=== PATIENT | female | born 1960 | race Caucasian/White ===

== ENCOUNTER 2018-01-14 13:58 | Inpatient (IN) ==
[2018-01-14] MEDS ORDERED: CeFAZolin Syr 2,000MG/20 ML 2,000 MG/20 ML SYRINGE IVPB ONE (14:18)
[2018-01-14] MEDS ORDERED: Ringers Solution, Lactated 1,000 ML IVC SCH (14:30)
--- NOTE | 2018-01-14 15:33 | History & Physical Report ---
Date of Encounter: 01/14/18 Time of Encounter: 16:19 24 Hour HP Update - Instructions Instructions: If the History and Physical is less than 30 days old and was completed prior to A.M. admission and or procedure and has NOT been updated on calendar day of procedure please complete this update prior to performing procedure. - Update Patient reports changes in Medical Condition: No Changes in examination, assessment, or condition: No Changes in Medication: No Preop tests/diagnostics Reviewed: Yes Pre-Op MRSA Screen: Positive, Vancomycin for Prophylaxis Surgery Remains Indicated: Yes Consent for Planned Operative Procedure(s) Verified: Yes
--- NOTE | 2018-01-14 15:33 | Discharge Summary ---
Outpatient Proc Discharge Plan - Plan Additional Instructions: There a few things to keep in mind in the next few days. If you notice redness at the site, drainage from the site, swelling at the battery site, feeling ill, fever, or chills, call our office. These are signs of infection. Infections are rare and can be treated, but delaying the diagnosis of infection is dangerous. It is normal to have soreness at the surgery site. This will go away in a few days. Do not submerge the incisions in water before they are totally healed. Keep the bandage dry. Do not remove the bandage. Our office will take care of it. We will remove the bandages in 2 weeks in the office. You are never very far from someone who can help if you have questions. Call our office with any questions or problems during the week. Go the emergency department if you are experiencing problems on a weekend or holiday. Have a good day, continue to be active. Home Medications: Acetaminophen [Tylenol] 650 mg PO Q4H PRN 05/19/16 [History] Aspirin 81 mg PO DAILY 05/19/16 [History] Bisacodyl [Dulcolax] 10 mg RC QPM 05/19/16 [History] BuPROPion XL (24 HR) [Wellbutrin XL] 150 mg PO DAILY 05/19/16 [History] Canagliflozin [Invokana] 300 mg PO DAILY 05/19/16 [History] Escitalopram [Lexapro] 10 mg PO DAILY 05/19/16 [History] Hydrocortisone [Proctozone-Hc] 1 appl RC BID PRN 05/19/16 [History] Insulin ASPART [NovoLOG] 24 unit SQ TIDWM 05/19/16 [History] Insulin DETEMIR [Levemir] 100 unit SQ QAM 05/19/16 [History] Insulin DETEMIR [Levemir] 110 unit SQ HS 05/19/16 [History] L. Acidophilus/Pectin, [place] [Acidophilus Capsule] 1 each PO DAILY 05/19/16 [ History] Lactulose [Enulose] 10 gm PO BID PRN 05/19/16 [History] LevETIRAcetam [Keppra] 500 mg PO Q12H 05/19/16 [History] Loperamide [Imodium] 2 mg PO DAILY PRN MDD 8 capsules 05/19/16 [History] MOM Conc [Milk of Magnesia Conc] 30 ml PO BID PRN 05/19/16 [History] Multivitamin,Stress Formula/Zn [Stress B with Zinc Tablet] 1 each PO DAILY 05/19 [History] Ranitidine HCl [Zantac] 300 mg PO DAILY 05/19/16 [History] Saline Nasal [place] [[place] Nasal [place]] 1 spr NS Q6H 05/19/16 [History] Sennosides/Docusate Sodium [Senna-S Tablet] 1 each PO BID 05/19/16 [History] Atorvastatin [Lipitor] 20 mg PO HS 01/14/18 [History]
--- NOTE | 2018-01-14 15:34 | Pain Management Procedure Note ---
Date of procedure: 01/14/18 Procedure: PHYSICIAN: DR. LARRY PREOPERATIVE DIAGNOSIS: History of hemorrhagic stroke associated with chronic spasticity POSTOPERATIVE DIAGNOSIS: Same OPERATIVE PROCEDURE: Surgical revision of intrathecal pump (replacement of pump and catheter) COMPLICATIONS: None ANESTHESIA: Local and monitored anesthesia care. SAFETY INFORMATION: Upon entering the procedure suite, we verified the following information with the patient: 1. The patient denies allergies to latex, iodine, steroids, and IV contrast. 2. The patient denies taking oral anticoagulants other than aspirin. 3. The patient denies recently being given injectable anticoagulants. 4. The patient denies recent hospital, Emergency Department, or inpatient rehabilitation admission. 5. The patient denies use of herbal medications, in particular garlic and ginkgo. 6. The patient denies solid food or non clear liquid intake for at least 8 hours and clear liquids for 2 hours. PROCEDURE: The patient presented to me yesterday with skin breakdown over the catheter access port site of her intrathecal infusion system. The patient lives in a long-term care facility, is generally debilitated, is chronically infected with urinary tract infections and pathogens, and is MRSA positive. In this setting, the patient is high risk for infected spinal hardware. Because we are infusing baclofen through her programmable intrathecal pump, I decided to bring the patient to the operating room in order to revise her pump site. Her skin started to breakdown because of a massive increase in intra-abdominal fat and recent new body positions due to recently getting access to a special chair which allows her to sit up. The pressure caused by intra-abdominal fat and her new sitting position seem to be the reason why her skin broke down. I think it is important that we get ahead of an infection that could cause her to be septic and threatened the integrity of her intrathecal infusion system which is also a life-threatening problem. The patient was correctly identified. All questions were answered and informed , written consent was verified. An intravenous catheter was placed prior to the procedure. Vancomycin was administered 60 minutes prior to the procedure via slow IV infusion. The IV line was subsequently used to deliver appropriate doses of anesthetic to keep the patient comfortable at certain times during this procedure. Strict sterile technique was followed throughout the procedure including surgical scrubbing and full body draping. The patient was brought to the fluoroscopy suite and placed in the supine position on the OR table. Care was taken to pad all pressure points. The patient's right lower quadrant where the pump rested under her skin was prepped in the typical sterile fashion. The patient's full body was draped in the usual sterile fashion. A surgical window of sterilized skin from iliac crest to rib cage was created. Sticky plastic film impregnated with iodine was then placed over the surgical skin which allowed us to visualize the prior marker lines. First, I outlined the original pump with a skin marker. I also traced the original incision line across the superior border of the original pump. I used a 1-1/2 inch 25-gauge needle to place 17 mLs of 0.25% bupivacaine with epinephrine along this incision line. I used a 15 blade scalpel to open the skin along the previously drawn and anesthetized line across the pump. Electrocautery and blunt dissection were used to dissect down to the original hardware. Small areas of oozing blood controlled with electrocautery. I was able to mobilize the original pump out of the wound and remove it from the surgical field after disconnecting the catheter from the pump. At this point, I turned my attention to revision of the pocket site. I used blunt dissection to extend the plane of the pocket laterally into and beyond the anterior axillary line. I also mobilized the catheter from scar tissue so that the catheter could rest behind the pump. The new pump pocket site was superficial to muscular fascia which was clearly visualized. Small bleeding vessels were coagulated with electrocautery. The wound was copiously irrigated with 2 L of saline. The first liter was normal saline. The second liter containing 1 g of vancomycin. We decided to implant a new 20 mL pump rather than a 40 mL pump because of the preponderance of intra-abdominal fat causing a protuberant abdomen. A 40 mL pump simply no longer fits this patient. The new pump was connected to the catheter system and the catheter was aspirated via the catheter access port. Clear CSF was easily withdrawn. I was able to withdraw 0.5 mls of CSF from the catheter access port. The new 20 mL pump was then placed into the new pocket which was more lateral to the original site. I used 0-0 silk suture to anchor the pump within the pocket to prevent the patient from being able to twist the pump. I also took great care to place the catheter beneath the new pump so that the catheter could not inadvertently entered the space between the reservoir access port and the skin surface. I also placed hetastarch in the wound to cause a generalized inflammatory reaction so that the pump would scar into place and the catheter with scar in beneath the pump. Prior to approximating the wound edges, I made sure that the catheter was beneath the pump. Finally, I sprinkled 500 mg of vancomycin powder into the wound. The incision was now closed. I used 0-0 barbed absorbable self locking suture to approximate the subcutaneous layer using a running stitch. The dermis was closed with a 2-0 barbed absorbable self locking suture using a running stitch. The skin edges were well approximated. I then placed a Zipline device to approximate the skin edges of both incisions. The final dressing was a Tegaderm with sterile gauze. The sponge and instrument counts were correct. The patient tolerated the entire procedure well. The sterile field was taken down, and the patient was moved to the recovery room. The patient was then taken from recovery to the hospital floor. I consult of the medicine service to assist me with her medical management. I discussed her overall medical state, recurrent urinary tract infections, and risk for spinal infusion system infection. They saw on the intraoperative findings of no major abscess or ongoing infection, I think it is reasonable to stop intravenous antibiotics now. We anticipate the patient to return to her long-term care facility in 24-48 hours. Was there an social service assistant present: No Estimated blood loss (cc): 10 Specimen: 0
--- NOTE | 2018-01-14 16:17 | Anesthesia Evaluation PreOp ---
Date of Encounter: 01/14/18 Time of Encounter: 16:15 - Past History Planned Operation: Revision Intrathecal Pump Cardiac History: HTN, Hyperlipidemia Pulmonary History: Former smoker (quit in 2008, smoked for 30 years), COPD DIRECTOR COMPLIANCE History: CVA ((in 2008, hemiplegia right side) Other Medical History: Diabetes Type II, GERD, Other (anxiety) Anesthesia History: No Prior Anesthetic Complications, Past Anesthesia (brain aneurysm coiling) Alcohol Use: none Drug use: none Medications and Allergies Acetaminophen [Tylenol] 650 mg PO Q4H PRN 05/19/16 [History] Aspirin 81 mg PO DAILY 05/19/16 [History] Bisacodyl [Dulcolax] 10 mg RC QPM 05/19/16 [History] BuPROPion XL (24 HR) [Wellbutrin XL] 150 mg PO DAILY 05/19/16 [History] Canagliflozin [Invokana] 300 mg PO DAILY 05/19/16 [History] Escitalopram [Lexapro] 10 mg PO DAILY 05/19/16 [History] Hydrocortisone [Proctozone-Hc] 1 appl RC BID PRN 05/19/16 [History] Insulin ASPART [NovoLOG] 24 unit SQ TIDWM 05/19/16 [History] Insulin DETEMIR [Levemir] 100 unit SQ QAM 05/19/16 [History] Insulin DETEMIR [Levemir] 110 unit SQ HS 05/19/16 [History] L. Acidophilus/Pectin, [place] [Acidophilus Capsule] 1 each PO DAILY 05/19/16 [ History] Lactulose [Enulose] 10 gm PO BID PRN 05/19/16 [History] LevETIRAcetam [Keppra] 500 mg PO Q12H 05/19/16 [History] Loperamide [Imodium] 2 mg PO DAILY PRN MDD 8 capsules 05/19/16 [History] MOM Conc [Milk of Magnesia Conc] 30 ml PO BID PRN 05/19/16 [History] Multivitamin,Stress Formula/Zn [Stress B with Zinc Tablet] 1 each PO DAILY 05/19 [History] Ranitidine HCl [Zantac] 300 mg PO DAILY 05/19/16 [History] Saline Nasal [place] [[place] Nasal [place]] 1 spr NS Q6H 05/19/16 [History] Sennosides/Docusate Sodium [Senna-S Tablet] 1 each PO BID 05/19/16 [History] Atorvastatin [Lipitor] 20 mg PO HS 01/14/18 [History] 3 Allergy/AdvReac Type Severity Reaction Status Date / Time No Known Allergies Allergy Verified 05/19/16 14:00 - Meds/Allergy Pre-op Review Medications Reviewed: Yes Allergies Reviewed: Yes Beta Blockers on Current Med List: No Anesthesia Results - Labs Laboratory Tests 05/15/16 05/15/16 05/15/16 12:45 12:45 12:45 WBC 9.6 Hgb 14.4 Hct 47.4 H Plt Count 301 PT 11.4 INR 1.1 APTT 28.1 Sodium 143 Potassium 3.9 BUN 15 Creatinine 0.59 - Imaging EKG: report reviewed (01/28/2016 SB) Anesthesia Exam O2 Sat Height 1.55 m Weight 83.915 kg O2 Sat by Pulse Oximetry 93 Vital Signs Temp Pulse Resp BP Pulse Ox 97.7 F 73 16 131/80 93 01/14/18 14:11 01/14/18 14:11 01/14/18 14:11 01/14/18 14:11 01/14/18 14:11 Height: 5'1'' Weight: 185 lbs NPO (# of Hours): 8 Pain Scale: 0 Pain Scale Used: Numeric (1 - 10) - HEENT Mallampati: III Teeth: Normal, Missing Oral Opening: Less than or equal to 3 - DIRECTOR COMPLIANCE LOC: Uncooperative DIRECTOR COMPLIANCE Motor: Normal LUE, Normal LLE, Normal Face, Deficit RUE, Deficit RLE DIRECTOR COMPLIANCE Sensory: Normal: RUE, LUE, RLE, LLE, Face - Cardiac Rhythm: Regular Murmur: None - Pulmonary Breath Sounds: bilateral Clear (distant BS) Respiratory Effort: Symmetrical Anesthesia Assess/Plan ASA Score: 3 (Consent obtained from patient's father.) Modified Karol Scale for Level of Consciousness: Anixous, agitated or restless Anesthetic Plan: General Monitoring Plan: Standard Monitors Recovery Plan: PACU
[2018-01-14] MEDS ORDERED: *HR* Propofol 200 MG/20 ML VIAL IVP ONE (16:25)
[2018-01-14] MEDS ORDERED: Lidocaine -MPF 4% 5 ML AMPUL ONE (16:25)
[2018-01-14] MEDS ORDERED: *HR* Rocuronium Bromide 50 MG/5 ML VIAL ONE (16:25)
[2018-01-14] MEDS ORDERED: *HR* FentaNYL (PF) 100 MCG/2 ML VIAL ONE (16:25)
[2018-01-14] MEDS ORDERED: KETAMINE HCL 50 MG/ML SYRINGE IV ONE (16:28)
[2018-01-14] MEDS ORDERED: Acetaminophen IV 1,000 MG/100 ML INFUS..BTL ONE (16:28)
[2018-01-14] MEDS ORDERED: SUGAMMADEX SODIUM 500 MG/5 ML VIAL IV ONE (16:28)
[2018-01-14] MEDS ORDERED: Lidocaine/EPI 1:100k 2% 20 ML VIAL ONE (16:30)
[2018-01-14] MEDS ORDERED: Bupivacaine/EPI 1:200k 0.25%PF 10 ML VIAL INFILT ONE (16:30)
[2018-01-14] MEDS ORDERED: Vancomycin 1,000 MG VIAL ONE (16:34)
[2018-01-14] MEDS ORDERED: Gentamicin 80 MG/2 ML VIAL ONE (17:26)
[2018-01-14 17:30] LABS: Basophils % 0.3 %; Eosinophils # 0.2 K/mcL (0.0-0.6); Eosinophils % 1.6 %; Immature Granulocytes % 0.3 % (0-4); Lymphocytes # 2.5 K/mcL (0.6-4.6); Mean Corpuscular HGB Conc 31.3 g/dL (31.6-35.5); Mean Corpuscular Volume 92.7 fL (83.0-100.0); Mean Platelet Volume 9.9 fL (9.4-12.4); Monocytes # 0.6 K/mcL (0.0-1.3); Monocytes % 5.1 %; Neutrophils # 8.5 K/mcL (1.6-8.9); Platelet Count 284 K/mcL (140-400); Red Blood Count 5.18 M/mcL (3.82-4.97); Red Cell Distribution Width 18.4 % (11.5-14.5); Segmented Neutrophils % 71.7 %
[2018-01-14] MEDS ORDERED: Ondansetron 4 MG/2 ML VIAL ONE (17:43)
[2018-01-14] MEDS ORDERED: Dexamethasone 4 MG/ML VIAL ONE (17:43)
[2018-01-14] MEDS ORDERED: EPHEDrine 50 MG/ML VIAL ONE (18:03)
[2018-01-14] MEDS ORDERED: *HR* Promethazine 25 MG/ML VIAL IVP PRN (18:09)
[2018-01-14] MEDS ORDERED: *HR* HYDROmorphone (PF) 1 MG/ML SYRINGE IVP PRN (18:09)
[2018-01-14] MEDS ORDERED: Ondansetron 4 MG/2 ML VIAL IVP ONE (18:09)
[2018-01-14] MEDS ORDERED: *HR* OxyCODONE Immed Rel 5 MG TABLET PO PRN (18:09)
[2018-01-14] MEDS ORDERED: *HR* Labetalol 20 MG/4 ML SYRINGE IVP PRN (19:04)
[2018-01-14] MEDS ORDERED: *HR* Labetalol 20 MG/4 ML SYRINGE IVP ONE (19:05)
[2018-01-14] MEDS ORDERED: *HR* OxyCODONE/APAP 5/325 TABLET PO PRN (19:18)
[2018-01-14] MEDS ORDERED: Ondansetron 4 MG/2 ML VIAL IVP PRN (19:18)
[2018-01-14] MEDS ORDERED: Albuterol 2.5 MG/3 ML NEBULIZER ONE (19:19)
[2018-01-14] MEDS ORDERED: Albuterol 2.5 MG/3 ML NEBULIZER IH ONE (19:20)
[2018-01-14] MEDS ORDERED: Lactulose Oral Soln 20 GM/30 ML UDC PO PRN (19:20)
[2018-01-14] MEDS ORDERED: Hydrocortisone Rectal 2.5% CRM 28 GM TUBE RC PRN (19:20)
[2018-01-14] MEDS ORDERED: MOM Conc 10 ML UD.LIQ PO PRN (19:20)
--- NOTE | 2018-01-14 19:52 | Anesthesia Evaluation Post Op ---
Date of Encounter: 01/14/18 Time of Encounter: 19:51 - Vital Signs Vital Signs: Vital Signs/O2 Sat, Most Current Temp Pulse Resp BP Pulse Ox 98.8 F 88 16 149/79 97 01/14/18 19:41 01/14/18 19:41 01/14/18 19:41 01/14/18 19:41 01/14/18 19:41 - Lungs Lungs: Clear Ascult./Percussion - Airway Airway: Non-obstructed - Cardiovascular Regular Rate - Mental Status Mental Status: Alert & Oriented, Answers Appropriately - Pain Pain Scale: 0 Pain Scale used: Numeric (1 - 10) - Nausea Vomiting Nausea Vomiting: Not Present - Hydration Hydration: NPO, Has not voided - Discharge PostOp Status: Transfer Patient to floor
[2018-01-14] MEDS ORDERED: *HR* Dextrose 50 % in Water (Syg) 50 ML SYRINGE IVP PRN (21:00)
[2018-01-14] MEDS ORDERED: Insulin DETEMIR 100 UNIT/ML X5UNITS SQ SCH (21:00)
[2018-01-14] MEDS ORDERED: Dextrose Gel 15 GM/37.5 ML TUBE PO PRN ×2 (21:00)
[2018-01-14] MEDS ORDERED: D5% in Water 1,000 ML IVC PRN (21:00)
[2018-01-14] MEDS ORDERED: Naloxone 0.4 MG/ML INJ IVP PRN (21:01)
--- NOTE | 2018-01-14 21:10 | Internal Medicine Consult Note ---
<Donald Ambriz - Last Filed: 01/14/18 22:11> Date of Encounter: 01/14/18 Time of Encounter: 20:30 - Assessment and plan (1) Pain Current Visit: Yes Status: Acute Assessment and plan: Monitor for acute pain following surgical revision of intrathecal pump today. Pt. denies pain on exam. Tegaderm w/sterile gauze placed after insertion of pump. Tylenol 500 mg ordered for mild pain, oxycodone 5/325 PO Q4HR PRN for moderate pain, and hydromorphone 0.5 mg IVP Q5MIN PRN for severe pain ordered. Monitor pts. BP following opiate pain medication administration to assess for hypotension. Dressing applied following surgical intervention w/plan to provide dressing care and removal of bandages in 2 weeks in office as OP. Pt. discussed w/Dr. Franz who agrees w/plan of care. Pt. is high risk for further morbidity and complications d/t hx of previous MRSA, current surgical revision of intrathecal pump and catheter, hx of chronic UTIs, hx of hemorrhagic stroke, and risk factors. Inpatient. (2) HTN (hypertension) Current Visit: Yes Status: Acute Assessment and plan: Acute HTN r/t post-surgical status. Labetalol 5 mg IVP Q5MIN PRN x2 doses ordered. Will monitor pt. closely for HTN. Qualifiers: Hypertension type: other secondary hypertension Qualified Code(s): I15.8 - Other secondary hypertension (3) Diabetes Current Visit: Yes Status: Chronic Assessment and plan: Hx of chronic diabetes controlled w/oral medication and insulin. Invokana continued w/pts. home insulin dosing. BG checks and correction sliding scale insulin ordered Q6 d/t current NPO status until bedside swallow evaluation passed. A1c in a.m. labs. Qualifiers: Diabetes mellitus type: type 2 Diabetes mellitus prison insulin use: unspecified prison insulin use status Diabetes mellitus complication status : with unspecified complications Qualified Code(s): E11.8 - Type 2 diabetes mellitus with unspecified complications (4) HLD (hyperlipidemia) Current Visit: Yes Status: Chronic Assessment and plan: Hx of chronic HLD. Lipid panel in a.m. labs. Continue pts. Lipitor. Qualifiers: Hyperlipidemia type: pure hypercholesterolemia Qualified Code(s): E78.00 - Pure hypercholesterolemia, unspecified; E78.0 - Pure hypercholesterolemia (5) GERD (gastroesophageal reflux disease) Current Visit: Yes Status: Chronic Assessment and plan: Hx of chronic GERD. Continue pts. PO Zantac. IVP Phenergan 6.25 mg Q5MIN x2 doses ordered for N/V post-anesthesia. IVP Zofran 4 mg Q6HR PRN ordered as well. Qualifiers: Esophagitis presence: esophagitis presence not specified Qualified Code(s) : K21.9 - Gastro-esophageal reflux disease without esophagitis (6) Seizures Current Visit: Yes Status: Chronic Assessment and plan: Hx of chronic seizures. Continue pts. Keppra. (7) Depression Current Visit: Yes Status: Chronic Assessment and plan: Hx of chronic depression. Continue pts. Wellbutrin and Lexapro. Qualifiers: Depression Type: unspecified Qualified Code(s): F32.9 - Major depressive disorder, single episode, unspecified (8) DVT prophylaxis Current Visit: Yes Status: Acute Assessment and plan: SCDs ordered for DVT prophylaxis. (9) Nausea after anesthesia Current Visit: Yes Status: Acute Assessment and plan: IVP Phenergan x2 doses ordered. IVP Zofran 4 mg Q6HR PRN ordered. Monitor I&O. Qualifiers: Encounter type: initial encounter Qualified Code(s): T88.59XA - Other complications of anesthesia, initial encounter; R11.0 - Nausea - Time Spent With Patient Total time spent is greater than 50% in coordination of care (as documented) at patient's floor/unit and/or counseling patient: Greater than 35 minutes Internal Medicine - CN: HPI - Data of Consult Patient: new to practice Requesting Physician: Juliocesar Parra DO - Consult Narrative Reason for consult: Medical mgmt History of present illness: Ms. Cramer is a 57 year old female w/PMH of diabetes controlled with insulin , aortic aneurysm, HLD, seizures, GERD, hx of hemorrhagic stroke, history of chronic UTIs, and depression presents post placement of intrathecal pump today for medical management. According to postoperative notes, patient had 20 mL pump inserted which replaced previous 40 mL pump. Pt. is a resident of [facility], generally debilitated, was found to be MRSA positive in the past, and has hx of chronic UTIs. Pt. is in and out of awareness d/t anesthesia but states that she is not in any pain at the time of exam. Plan from surgery is to manage pt. w/ return to [facility] in 24-48 hours. Past Med Surg Social Fam HX - Past Medical History Source: patient, old records reviewed Medical history: aortic aneurysm, CVA, diabetes, GERD, hyperlipidemia, seizures Additional medical history: Brain aneurysm, Chronic UTIs. Psychiatric history: depression - Past Surgical History Surgical History: other Additional surgical history: PAIN PUMP - Social History Smoking Status: Never smoker Smokeless Tobacco Status: No Alcohol use: none Drug use: none Current living situation: [facility] Recent Out of Country Travel Within the Last 8 Weeks: No Exposure or Possible Exposure to Illness During Travel: No - Family History Father Race: Family Member Ethnicity: Non- Living Status: Age at : 50 Cause of : MD Hx Family Cardiac Disorders: Yes (MD, CAD) Mother Race: Family Member Ethnicity: Non- Living Status: Age at : 53 Cause of : Brain cancer Hx Family Cancer: Yes (Brain) - Constitutional Constitutional: as per HPI - EENT Eyes: as per HPI Ears: as per HPI Nose, mouth and throat: as per HPI - Breasts Breasts: as per HPI - Cardiovascular Cardiovascular ROS IM: as per HPI - Respiratory Respiratory: as per HPI - Gastrointestinal Gastrointestinal: as per HPI - Genitourinary Genitourinary: as per HPI Menstruation: as per HPI - Musculoskeletal Musculoskeletal ROS IM: as per HPI - Integumentary Integumentary IM: as per HPI - Neurological Neurological ROS: as per HPI - Psychiatric Psychiatric: as per HPI, depression - Endocrine Endocrine IM: as per HPI - Hematologic/Lymphatic Hematologic/Lymphatic: as per HPI - Allergic/Immunologic Allergic/Immunologic: as per HPI Internal Medicine - CN: Meds Acetaminophen [Tylenol] 650 mg PO Q4H PRN 05/19/16 [History] Aspirin 81 mg PO DAILY 05/19/16 [History] Bisacodyl [Dulcolax] 10 mg RC QPM 05/19/16 [History] BuPROPion XL (24 HR) [Wellbutrin XL] 150 mg PO DAILY 05/19/16 [History] Canagliflozin [Invokana] 300 mg PO DAILY 05/19/16 [History] Escitalopram [Lexapro] 10 mg PO DAILY 05/19/16 [History] Hydrocortisone [Proctozone-Hc] 1 appl RC BID PRN 05/19/16 [History] Insulin ASPART [NovoLOG] 24 unit SQ TIDWM 05/19/16 [History] Insulin DETEMIR [Levemir] 100 unit SQ QAM 05/19/16 [History] Insulin DETEMIR [Levemir] 110 unit SQ HS 05/19/16 [History] L. Acidophilus/Pectin, Preemption [Acidophilus Capsule] 1 each PO DAILY 05/19/16 [ History] Lactulose [Enulose] 10 gm PO BID PRN 05/19/16 [History] LevETIRAcetam [Keppra] 500 mg PO Q12H 05/19/16 [History] Loperamide [Imodium] 2 mg PO DAILY PRN MDD 8 capsules 05/19/16 [History] MOM Conc [Milk of Magnesia Conc] 30 ml PO BID PRN 05/19/16 [History] Multivitamin,Stress Formula/Zn [Stress B with Zinc Tablet] 1 each PO DAILY 05/19 [History] Ranitidine HCl [Zantac] 300 mg PO DAILY 05/19/16 [History] Saline Nasal [place] [[place] Nasal [place]] 1 spr NS Q6H 05/19/16 [History] Sennosides/Docusate Sodium [Senna-S Tablet] 1 each PO BID 05/19/16 [History] Atorvastatin [Lipitor] 20 mg PO HS 01/14/18 [History] 3 Allergy/AdvReac Type Severity Reaction Status Date / Time No Known Allergies Allergy Verified 05/19/16 14:00 Hospitalist - CN: Exam - Constitutional Vitals: Temp Pulse Resp BP Pulse Ox 98.8 F 89 16 163/76 96 01/14/18 19:51 01/14/18 19:51 01/14/18 19:51 01/14/18 19:51 01/14/18 19:51 General appearance IM: Present: cooperative, A&O X 1, no acute distress, obese, answers questions appropriately Exam: Patient examined at bedside. Pt. had transient awareness during exam d/t sedation. Pt. reported no pain post-surgery and was able to discuss Code Status and family hx clearly. Pt. denies any other complaints at this time. VS: 98.8F temp, HR 89, RR 16, BP 163/76, SpO2 96% on 2L via NC. - Head Head exam: Present: normal inspection - Eye Eye exam: Present: PERRL, conjuntiva pink Pupils: Present: PERRL - ENT ENT exam: Present: normal exam - Neck Neck exam general surgery: Present: normal inspection - Respiratory Respiratory exam: Present: CTAB - Cardiovascular Cardiovascular exam IM: Present: RRR, +S1, +S2 - GI/Abdominal GI/Abdominal exam IM: Present: normal bowel sounds, soft, no peritoneal signs - Rectal Rectal exam: Present: deferred - Additional comments: exam deferred. - Extremities Exam Extremities exam IM: Present: warm, radial pulses palpable and symmetrical - Neurological Exam Neurological exam: Present: altered (D/t sedation. Pt. has transient awareness during exam.) - Expanded Neurological Exam Patient oriented to: Present: person - Psychiatric Psychiatric exam: Present: normal affect, normal mood - Skin Skin exam IM: Present: dry, intact Internal Medicine - CN: Reslt - Labs CBC & Chem 7: 01/14/18 17:13 Labs: Short CBC 01/14/18 Range/Units 17:13 WBC 11.9 H (4.3-11.1) K/mcL Hgb 15.0 (11.5-15.4) g/dL Hct 48.0 H (35.3-44.9) % Plt Count 284 (140-400) K/mcL Neutrophils # 8.5 (1.6-8.9) K/mcL Consult Discharge Plan - Plan Additional Instructions: There a few things to keep in mind in the next few days. If you notice redness at the site, drainage from the site, swelling at the battery site, feeling ill, fever, or chills, call our office. These are signs of infection. Infections are rare and can be treated, but delaying the diagnosis of infection is dangerous. It is normal to have soreness at the surgery site. This will go away in a few days. Do not submerge the incisions in water before they are totally healed. Keep the bandage dry. Do not remove the bandage. Our office will take care of it. We will remove the bandages in 2 weeks in the office. You are never very far from someone who can help if you have questions. Call our office with any questions or problems during the week. Go the emergency department if you are experiencing problems on a weekend or holiday. Have a good day, continue to be active. Referrals: Gerry Lara MD [Primary Care Provider] - <Royal Franz - Last Filed: 01/15/18 00:11> Date of Encounter: 01/15/18 - Assessment and plan (1) Diabetes Current Visit: Yes Status: Chronic Qualifiers: Diabetes mellitus type: type 2 Diabetes mellitus watermelon inspector insulin use: unspecified watermelon inspector insulin use status Diabetes mellitus complication status : with unspecified complications Qualified Code(s): E11.8 - Type 2 diabetes mellitus with unspecified complications (2) HLD (hyperlipidemia) Current Visit: Yes Status: Chronic Qualifiers: Hyperlipidemia type: pure hypercholesterolemia Qualified Code(s): E78.00 - Pure hypercholesterolemia, unspecified; E78.0 - Pure hypercholesterolemia (3) GERD (gastroesophageal reflux disease) Current Visit: Yes Status: Chronic Qualifiers: Esophagitis presence: esophagitis presence not specified Qualified Code(s) : K21.9 - Gastro-esophageal reflux disease without esophagitis (4) Seizures Current Visit: Yes Status: Chronic (5) Depression Current Visit: Yes Status: Chronic Qualifiers: Depression Type: unspecified Qualified Code(s): F32.9 - Major depressive disorder, single episode, unspecified (6) Pain Current Visit: Yes Status: Acute (7) HTN (hypertension) Current Visit: Yes Status: Acute Qualifiers: Hypertension type: other secondary hypertension Qualified Code(s): I15.8 - Other secondary hypertension (8) DVT prophylaxis Current Visit: Yes Status: Acute (9) Nausea after anesthesia Current Visit: Yes Status: Acute Qualifiers: Encounter type: initial encounter Qualified Code(s): T88.59XA - Other complications of anesthesia, initial encounter; R11.0 - Nausea - Time Spent With Patient Total time spent is greater than 50% in coordination of care (as documented) at patient's floor/unit and/or counseling patient: Internal Medicine - CN: HPI - Data of Consult Requesting Physician: Juliocesar Parra DO - Consult Narrative History of present illness: Ms. Cramer is a 57 year old female Hospitalist - CN: Exam - Constitutional Vitals: Temp Pulse Resp BP Pulse Ox 98.8 F 89 16 163/76 96 01/14/18 19:51 01/14/18 19:51 01/14/18 19:51 01/14/18 19:51 01/14/18 19:51 Internal Medicine - CN: Reslt - Labs CBC & Chem 7: 01/14/18 17:13 Labs: Short CBC 01/14/18 Range/Units 17:13 WBC 11.9 H (4.3-11.1) K/mcL Hgb 15.0 (11.5-15.4) g/dL Hct 48.0 H (35.3-44.9) % Plt Count 284 (140-400) K/mcL Neutrophils # 8.5 (1.6-8.9) K/mcL - Attending Attestation Cheryl Cramer is a 57-year-old woman with a history of hypertension, diabetes and CVA with resultant paraplegic spasticity and chronic pain likely debilitated state who has an intrathecal pump and was admitted for same day procedure for exchange of the pump. Internal medicine was consulted for assistance in management of her comorbidities. She received 1 g of vancomycin and 80 mg of gentamicin perioperatively. No complications reported during the procedure. On arrival to the floor she was noted somewhat hypoxic and required supplemental oxygen. She is now with a sitter as she continues to pull off her nasal cannula and face mask. She was seen alert and responsive and able to tell me her name and denies any complaints of pain. She does not appear dyspneic. Physical exam remarkable for dry mucous membranes, no wheezing, rales or rhonchi; soft and nontender abdomen. Legs in intermittent pneumatic compression stockings. Vitals remarkable for slightly elevated blood pressure. The patient will benefit for pain control as needed and post anesthetic anti- emetics. Resume oral antihypertensives tomorrow however for now she may receive an IV push if necessary for adequate control. Place on insulin correction sliding scale given her current nothing by mouth status. Anxiolytics and antidepressants as well as antiepileptic should be resumed as soon as feasible. Rest of management as indicated above. Thank you for consulting, please call with questions. Patient was seen and examined by me on 01/14/18.
[2018-01-14] MEDS ORDERED: 0.9 % Sodium Chloride 1,000 ML IVC SCH (23:45)
[2018-01-14] MEDS: levETIRAcetam 250 MG TABLET PO SCH (23:56)
[2018-01-15] MEDS: Saline Nasal Spray 44 ML BOTTLE NS SCH ×4 (00:11→13:48)
[2018-01-15 01:19] LABS: Basophils % 0.2 %; Hematocrit 47.6 % (35.3-44.9); Hemoglobin 14.6 g/dL (11.5-15.4); Immature Granulocytes % 0.4 % (0-4); Lymphocytes # 1.1 K/mcL (0.6-4.6); Lymphocytes % 7.9 %; Mean Corpuscular HGB Conc 30.7 g/dL (31.6-35.5); Mean Corpuscular Hemoglobin 28.5 pg (28.0-33.3); Mean Platelet Volume 10.1 fL (9.4-12.4); Monocytes # 0.2 K/mcL (0.0-1.3); Monocytes % 1.6 %; Neutrophils # 12.8 K/mcL (1.6-8.9); Platelet Count 276 K/mcL (140-400); Red Blood Count 5.12 M/mcL (3.82-4.97); Red Cell Distribution Width 17.2 % (11.5-14.5); Segmented Neutrophils % 89.9 %
[2018-01-15 01:24] LABS: Alanine Aminotransferase 15 Units/L (7-52); Albumin 3.9 g/dL (3.5-5.7); Albumin/Globulin Ratio 1.1 (1.1-2.2); Alkaline Phosphatase 104 Units/L (34-104); Aspartate Amino Transferase 17 Units/L (13-39); BUN/Creatinine Ratio 34 (6-26); Bilirubin,Total 0.6 mg/dL (0.3-1.0); Blood Urea Nitrogen 16 mg/dL (6-20); Calcium 9.3 mg/dL (8.6-10.3); Carbon Dioxide 26 mEq/L (23-29); Chloride 102 mEq/L (98-107); Chol/HDL Ratio 5.9 (0-4.9); Cholesterol 153 mg/dL (< 200); Globulin 3.6 g/dL (2.4-3.5); Glucose 198 mg/dL (70-105); HDL Cholesterol 26 mg/dL (40-59); LDL Cholesterol,Calculated 67 mg/dL (0-99); Magnesium 1.9 mg/dL (1.6-2.6); Osmolality,Calculated 297 (280-300); Potassium 4.3 mEq/L (3.5-5.1); Sodium 140 mEq/L (136-145); Total Protein 7.5 g/dL (6.4-8.9); Triglycerides 298 mg/dL (< 150); eGFR For Non-African Americans > 60 (> 60)
[2018-01-15] MEDS: Insulin LISPRO 300 UNITS/3 ML VIAL SQ SCH ×5 (01:31→13:12)
[2018-01-15] MEDS ORDERED: Famotidine 20 MG TABLET PO SCH (07:30)
[2018-01-15] MEDS: levETIRAcetam 250 MG TABLET PO SCH (08:05)
[2018-01-15] MEDS ORDERED: Lactobacillus 1 EACH CAP.SPRINK PO SCH (09:00)
[2018-01-15] MEDS ORDERED: Canagliflozin [Invokana] 300 MG PO SCH (09:00)
[2018-01-15] MEDS ORDERED: Insulin DETEMIR 100 UNIT/ML X5UNITS SQ SCH (09:00)
[2018-01-15] MEDS ORDERED: Aspirin 81 MG TAB.CHEW PO SCH (09:00)
[2018-01-15] MEDS ORDERED: BuPROPion XL (24 HR) 150 MG TABLET PO SCH (09:00)
[2018-01-15 09:15] LABS: Estimated Average Glucose 194 mg/dl; Hemoglobin A1C 8.4 %
[2018-01-15] MEDS: Nystatin POWDER 30 GM BOTTLE TP SCH ×2 (12:20→15:25)
[2018-01-15 16:20] VITALS: BP 124/66
[2018-01-15] MEDS ORDERED: Bisacodyl 10 MG RECTAL SUPPOSITORY RC SCH (18:00)
--- NOTE | 2018-01-15 18:08 | Internal Med Progress Note ---
Hospitalist Progress Note - Encounter Date of Encounter: 01/15/18 Time of Encounter: 11:00 - Subjective Interval History: Patient with no issues or complaints this morning status post Revision Intrathecal Pump - Exam Vitals: Temp Pulse Resp BP Pulse Ox 98.8 F 72 18 124/66 96 01/15/18 16:18 01/15/18 16:18 01/15/18 16:18 01/15/18 16:18 01/15/18 16:18 Exam: Gen.: Nonacute distress, alert and oriented 3 ENT: Mucosal membranes moist Respiratory: Lungs are clear to auscultation bilaterally without any wheezing rhonchi or rales Cardiovascular: Normal S1 and S2 regular rate rhythm no murmurs rubs or gallops Abdomen: Soft, nontender and nondistended with positive bowel sounds Extremities: No lower extremity edema Skin: Normal color - Assessment and Plan (1) Diabetes Status: Chronic Assessment and Plan: Patient's sugars relatively controlled not on her home insulin regimen Recommendations for patient to be placed on Lantus 10 mg daily at bedtime (2) HLD (hyperlipidemia) Status: Chronic Assessment and Plan: Continue pts. Lipitor. (3) GERD (gastroesophageal reflux disease) Status: Chronic Assessment and Plan: Continue pts. PO Zantac (4) Seizures Status: Chronic Assessment and Plan: Continue pts. Keppra. (5) Depression Status: Chronic Assessment and Plan: Continue pts. Wellbutrin and Lexapro. (6) HTN (hypertension) Status: Acute Assessment and Plan: Will monitor pt. closely for HTN. - Time Spent with Patient Total time spent is greater than 50% in coordination of care (as documented) at patient's floor/unit and/or counseling patient: Internal Medicine: Result - Labs CBC & Chem 7: 01/15/18 00:52 01/15/18 00:52 Labs: Short CBC 01/15/18 Range/Units 00:52 WBC 14.2 H (4.3-11.1) K/mcL Hgb 14.6 (11.5-15.4) g/dL Hct 47.6 H (35.3-44.9) % Plt Count 276 (140-400) K/mcL Neutrophils # 12.8 H (1.6-8.9) K/mcL BMP 01/15/18 00:52 Sodium 140 Potassium 4.3 Chloride 102 Carbon Dioxide 26 BUN 16 Creatinine 0.47 L Glucose 198 H Calcium 9.3 Liver Function 01/15/18 Range/Units 00:52 Total Bilirubin 0.6 (0.3-1.0) mg/dL AST 17 (13-39) Units/L ALT 15 (7-52) Units/L Alkaline Phosphatase 104 (34-104) Units/L Albumin 3.9 (3.5-5.7) g/dL Consult Discharge Plan - Plan Additional Instructions: There a few things to keep in mind in the next few days. If you notice redness at the site, drainage from the site, swelling at the battery site, feeling ill, fever, or chills, call our office. These are signs of infection. Infections are rare and can be treated, but delaying the diagnosis of infection is dangerous. It is normal to have soreness at the surgery site. This will go away in a few days. Do not submerge the incisions in water before they are totally healed. Keep the bandage dry. Do not remove the bandage. Our office will take care of it. We will remove the bandages in 2 weeks in the office. You are never very far from someone who can help if you have questions. Call our office with any questions or problems during the week. Go the emergency department if you are experiencing problems on a weekend or holiday. Have a good day, continue to be active. Referrals: Gerry Lara MD [Primary Care Provider] - (1) Diabetes Qualifiers: Diabetes mellitus type: type 2 Diabetes mellitus client care specialist insulin use: unspecified client care specialist insulin use status Diabetes mellitus complication status : with unspecified complications Qualified Code(s): E11.8 - Type 2 diabetes mellitus with unspecified complications (2) HLD (hyperlipidemia) Qualifiers: Hyperlipidemia type: pure hypercholesterolemia Qualified Code(s): E78.00 - Pure hypercholesterolemia, unspecified; E78.0 - Pure hypercholesterolemia (3) GERD (gastroesophageal reflux disease) Qualifiers: Esophagitis presence: esophagitis presence not specified Qualified Code(s): K21.9 - Gastro-esophageal reflux disease without esophagitis (5) Depression Qualifiers: Depression Type: unspecified Qualified Code(s): F32.9 - Major depressive disorder, single episode, unspecified (6) HTN (hypertension) Qualifiers: Hypertension type: other secondary hypertension Qualified Code(s): I15.8 - Other secondary hypertension
== END 2018-01-15 17:40 | DRG 30 ==
LOC: SAMDAY 13:58 → 3ANU 20:02 → SUATTDRO 20:02
PROVIDERS: ADMIT Student in an Organized Health Care Education/Training Program; ATTEND Hospitalist

== ENCOUNTER 2019-02-04 17:24 | Inpatient (IN) ==
[2019-02-04] MEDS ORDERED: Isovue-370 500 ML BOTTLE IVP ONE (17:55)
[2019-02-04] MEDS ORDERED: Acetaminophen 325 MG TABLET PO ONE (18:18)
[2019-02-04 18:38] LABS: ABG Base Excess 7 mEq/L (-2 to 3); ABG HCO3 33 mEq/L (21-27); ABG Oxygen Saturation 93 % (95-98); ABG PCO2 52 mmHg (35-45); ABG PH 7.41 pH Units (7.32-7.45); ABG PO2 68 mmHg (85-104); ABG TCO2 35 mEq/L (20-26)
[2019-02-04 18:46] LABS: Basophils % 0.3 %; Eosinophils # 0.2 K/mcL (0.0-0.6); Eosinophils % 1.7 %; Hematocrit 55.2 % (35.3-44.9); Hemoglobin 17.2 g/dL (11.5-15.4); Immature Granulocytes % 0.3 % (0-4); Lymphocytes # 2.2 K/mcL (0.6-4.6); Mean Corpuscular HGB Conc 31.2 g/dL (31.6-35.5); Mean Corpuscular Hemoglobin 30.9 pg (28.0-33.3); Mean Corpuscular Volume 99.1 fL (83.0-100.0); Mean Platelet Volume 11.8 fL (9.4-12.4); Monocytes # 0.7 K/mcL (0.0-1.3); Monocytes % 5.4 %; Neutrophils # 10.5 K/mcL (1.6-8.9); Platelet Count 187 K/mcL (140-400); Red Blood Count 5.57 M/mcL (3.82-4.97); Segmented Neutrophils % 76.3 %; White Blood Count 13.8 K/mcL (4.3-11.1)
[2019-02-04] MEDS: 0.9 % Sodium Chloride 1,000 ML IVC SCH ×2 (18:54→19:34)
[2019-02-04 19:19] LABS: Alanine Aminotransferase 111 Units/L (7-52); Albumin 3.8 g/dL (3.5-5.7); Alkaline Phosphatase 98 Units/L (34-104); Aspartate Amino Transferase 41 Units/L (13-39); BUN/Creatinine Ratio 35 (6-26); Bilirubin,Indirect 0.3 mg/dL (0.0-1.0); Bilirubin,Total 0.3 mg/dL (0.3-1.0); Blood Urea Nitrogen 22 mg/dL (6-20); Calcium 9.3 mg/dL (8.6-10.3); Carbon Dioxide 27 mEq/L (23-29); Chloride 117 mEq/L (98-107); Globulin 3.7 g/dL (2.4-3.5); Glucose 248 mg/dL (70-105); Lipase 42 Units/L (11-82); Magnesium 2.5 mg/dL (1.6-2.6); Osmolality,Calculated 332 (280-300); Potassium 3.8 mEq/L (3.5-5.1); Sodium 155 mEq/L (136-145); Total Protein 7.5 g/dL (6.4-8.9); Troponin I 0.38 ng/mL (< 0.04); eGFR For African Americans > 60 (> 60); eGFR For Non-African Americans > 60 (> 60)
[2019-02-04 19:33] LABS: Bilirubin,Urine Negative (Negative); Blood,Urine Large (Negative); Clarity,Urine Clear (Clear); Color,Urine Yellow (Yellow); Glucose,Urine (UA) >=1000 mg/dL (Normal); Ketones,Urine Negative (Negative); Leukocyte Esterase,Urine Trace (Negative); Nitrite,Urine Positive (Negative); Protein,Urine Trace mg/dL (Neg-Trace); Specific Gravity,Urine > 1.030 (1.010-1.025); Urobilinogen,Urine Normal (Normal)
[2019-02-04 19:36] LABS: Bacteria,Urine None Seen per hpf (None-Few); Hyaline Casts,Urine Few per lpf (None-Few); RBC,Urine 50-100 per hpf (0-3); Squamous Epithelial Cell,Urine Moderate per lpf (None-Few); WBC,Urine 50-100 per hpf (0-3)
[2019-02-04] MEDS ORDERED: levoFLOXacin 750 MG/150 ML 750 MG/150 ML BAG IVPB ONE (19:54)
[2019-02-04] MEDS ORDERED: Clindamycin 600 MG/50 ML 600 MG/50 ML IV.SOLN IVPB STA (21:19)
[2019-02-04] MEDS ORDERED: *HR* Heparin 5,000 UNIT/ML VIAL IVP PRN ×2 (21:32)
[2019-02-04] MEDS ORDERED: *HR* Heparin 5,000 UNIT/ML VIAL IVP ONE (21:32)
[2019-02-04] MEDS ORDERED: Aspirin 81 MG TAB.CHEW PO ONE (21:35)
[2019-02-04] MEDS ORDERED: Heparin 25,000 UNIT/250 ML D5W 25,000 UNIT/250 ML IV.SOLN IVC SCH (21:45)
[2019-02-04 23:20] LABS: Hematocrit 53.5 % (35.3-44.9); Hemoglobin 16.1 g/dL (11.5-15.4); Mean Corpuscular HGB Conc 30.1 g/dL (31.6-35.5); Mean Corpuscular Hemoglobin 31.4 pg (28.0-33.3); Mean Corpuscular Volume 104.5 fL (83.0-100.0); Mean Platelet Volume 11.8 fL (9.4-12.4); Platelet Count 104 K/mcL (140-400); Red Blood Count 5.12 M/mcL (3.82-4.97); Red Cell Distribution Width 15.9 % (11.5-14.5); White Blood Count 10.7 K/mcL (4.3-11.1)
[2019-02-04 23:59] LABS: Heparin anti-factor XA UFH 0.03 IU/mL (0.30-0.70)
[2019-02-05] LABS: Prothrombin Time 11.2 Seconds (9.4-12.1)
[2019-02-05] MEDS ORDERED: Naloxone 0.4 MG/ML INJ IVP PRN ×2 (03:07→11:53)
[2019-02-05] MEDS ORDERED: 0.9 % Sodium Chloride 1,000 ML IVC SCH (03:09)
[2019-02-05] MEDS ORDERED: Dextrose Gel 15 GM/37.5 ML TUBE PO PRN ×4 (03:11→11:53)
[2019-02-05] MEDS ORDERED: D5% in Water 1,000 ML IVC PRN ×2 (03:11→11:53)
[2019-02-05] MEDS ORDERED: *HR* Dextrose 50 % in Water (Syg) 50 ML SYRINGE IVP PRN ×2 (03:11→11:53)
[2019-02-05] MEDS ORDERED: Ondansetron ODT 4 MG TAB.RAPDIS PO PRN ×2 (03:15→11:53)
[2019-02-05] MEDS ORDERED: Ringers Solution, Lactated 1,000 ML IVC SCH (05:00)
[2019-02-05] MEDS ORDERED: levETIRAcetam 250 MG TABLET PO SCH (06:00)
[2019-02-05] MEDS ORDERED: Piperacillin/Tazobactam 3.375 GM in 0.9 % Sodium Chloride Mini Bag 100 ML IVPB SCH (06:00)
[2019-02-05] MEDS ORDERED: Insulin DETEMIR 100 UNIT/ML X5UNITS SQ SCH (06:00)
[2019-02-05 07:42] LABS: Basophils % 0.2 %; Eosinophils # 0.2 K/mcL (0.0-0.6); Eosinophils % 1.9 %; Hematocrit 52.8 % (35.3-44.9); Hemoglobin 15.8 g/dL (11.5-15.4); Immature Granulocytes % 0.5 % (0-4); Lymphocytes # 1.8 K/mcL (0.6-4.6); Lymphocytes % 18.4 %; Mean Corpuscular HGB Conc 29.9 g/dL (31.6-35.5); Mean Corpuscular Hemoglobin 30.6 pg (28.0-33.3); Mean Corpuscular Volume 102.1 fL (83.0-100.0); Mean Platelet Volume 10.9 fL (9.4-12.4); Monocytes # 0.5 K/mcL (0.0-1.3); Monocytes % 5.1 %; Platelet Count 116 K/mcL (140-400); Red Blood Count 5.17 M/mcL (3.82-4.97); Red Cell Distribution Width 15.9 % (11.5-14.5); Segmented Neutrophils % 73.9 %; White Blood Count 9.5 K/mcL (4.3-11.1)
[2019-02-05] MEDS: Insulin LISPRO 300 UNITS/3 ML VIAL SQ SCH ×5 (08:09→21:02)
[2019-02-05 08:10] LABS: Hypochromasia Present (Not Present); Platelet Estimate Slight Decrease (Normal)
[2019-02-05 08:41] LABS: Estimated Average Glucose 217 mg/dl
[2019-02-05] MEDS ORDERED: BuPROPion XL (24 HR) 150 MG TABLET PO SCH (09:00)
[2019-02-05] MEDS ORDERED: Famotidine 20 MG TABLET PO SCH (09:00)
[2019-02-05] MEDS ORDERED: Aspirin 81 MG TAB.CHEW PO SCH (09:00)
[2019-02-05] MEDS ORDERED: Ketamine *HR* 500 MG/10 ML MDV ONE (09:08)
[2019-02-05] MEDS ORDERED: Propofol 500 MG/50 ML INFUS..BTL ONE (09:31)
[2019-02-05] MEDS ORDERED: *HR* FentaNYL (PF) 100 MCG/2 ML VIAL ONE (10:44)
[2019-02-05] MEDS ORDERED: Heparin 1,000 UNITS/500 mL 500 ML ONE (10:45)
[2019-02-05] MEDS ORDERED: Lidocaine -MPF 2% 2 ML VIAL ONE (10:45)
[2019-02-05] MEDS ORDERED: *HR* Heparin 5,000 UNIT/ML VIAL IVP PRN ×2 (11:53)
[2019-02-05] MEDS: BuPROPion XL (24 HR) 150 MG TABLET PO SCH (12:39)
[2019-02-05] MEDS: Aspirin 81 MG TAB.CHEW PO SCH (12:40)
[2019-02-05] MEDS: Famotidine 20 MG TABLET PO SCH (12:40)
[2019-02-05] MEDS: Ringers Solution, Lactated 1,000 ML IVC SCH ×2 (14:03→18:50)
[2019-02-05] MEDS: Heparin 25,000 UNIT/250 ML D5W 25,000 UNIT/250 ML IV.SOLN IVC SCH (14:03)
[2019-02-05] MEDS: Piperacillin/Tazobactam 3.375 GM in 0.9 % Sodium Chloride Mini Bag 100 ML IVPB SCH ×2 (14:15→21:15)
[2019-02-05] MEDS ORDERED: Insulin LISPRO 300 UNITS/3 ML VIAL SQ SCH ×2 (16:30→21:00)
[2019-02-05] MEDS ORDERED: Mag Hydrox/Al Hydrox/Simeth 30 ML UDC PO PRN (17:31)
[2019-02-05] MEDS ORDERED: MOM Conc 10 ML UD.LIQ PO PRN (17:31)
[2019-02-05] MEDS: Bisacodyl 10 MG RECTAL SUPPOSITORY RC SCH (18:41)
[2019-02-05] MEDS: levETIRAcetam 250 MG TABLET PO SCH (18:42)
[2019-02-05] MEDS ORDERED: [UNRECOGNIZED DRUG - OTHER] TP SCH (21:00)
[2019-02-05] MEDS: Insulin DETEMIR 100 UNIT/ML X5UNITS SQ SCH (21:04)
[2019-02-05] MEDS: Triamcinolone Acet 0.1% CRM 15 GM TUBE TP SCH (21:05)
[2019-02-05 22:47] LABS: mecA Methicillin-Resist Gene Not Detected (Not Detect)
[2019-02-05 22:48] LABS: Acinetobacter baumannii by PCR Not Detected (Not Detect); Candida albicans by PCR Not Detected (Not Detect); Candida glabrata by PCR Not Detected (Not Detect); Candida krusei by PCR Not Detected (Not Detect); Candida parapsilosis by PCR Not Detected (Not Detect); Candida tropicalis by PCR Not Detected (Not Detect); Enterobacter cloacae Cmplx PCR Not Detected (Not Detect); Enterobacteriaceae by PCR Not Detected (Not Detect); Enterococcus by PCR Not Detected (Not Detect); Escherichia coli by PCR Not Detected (Not Detect); Klebsiella oxytoca by PCR Not Detected (Not Detect); Klebsiella pneumoniae by PCR Not Detected (Not Detect); Proteus by PCR Not Detected (Not Detect); Pseudomonas aeruginosa by PCR Not Detected (Not Detect); Serratia marcescens by PCR Not Detected (Not Detect); Staphylococcus aureus by PCR Not Detected (Not Detect); Staphylococcus by PCR DETECTED (Not Detect); Streptococcus agalactiae(B)PCR Not Detected (Not Detect); Streptococcus by PCR Not Detected (Not Detect); Streptococcus pneumoniae PCR Not Detected (Not Detect); Streptococcus pyogenes (A) PCR Not Detected (Not Detect)
[2019-02-06] MEDS: Heparin 25,000 UNIT/250 ML D5W 25,000 UNIT/250 ML IV.SOLN IVC SCH (00:40)
[2019-02-06 02:12] LABS: Basophils % 0.2 %; Eosinophils # 0.2 K/mcL (0.0-0.6); Eosinophils % 2.1 %; Hematocrit 44.8 % (35.3-44.9); Immature Granulocytes % 0.4 % (0-4); Lymphocytes # 1.9 K/mcL (0.6-4.6); Lymphocytes % 18.5 %; Mean Corpuscular Hemoglobin 30.2 pg (28.0-33.3); Mean Corpuscular Volume 104.2 fL (83.0-100.0); Mean Platelet Volume 11.4 fL (9.4-12.4); Monocytes # 0.5 K/mcL (0.0-1.3); Neutrophils # 7.5 K/mcL (1.6-8.9); Platelet Count 169 K/mcL (140-400); Red Cell Distribution Width 15.9 % (11.5-14.5); Segmented Neutrophils % 73.8 %; White Blood Count 10.2 K/mcL (4.3-11.1)
[2019-02-06] MEDS: Ringers Solution, Lactated 1,000 ML IVC SCH (02:24)
[2019-02-06] MEDS: levETIRAcetam 250 MG TABLET PO SCH ×2 (05:45→17:46)
[2019-02-06] MEDS: Piperacillin/Tazobactam 3.375 GM in 0.9 % Sodium Chloride Mini Bag 100 ML IVPB SCH ×3 (05:46→21:15)
[2019-02-06] MEDS: Lactobacillus 1 EACH CAP.SPRINK PO SCH (08:12)
[2019-02-06] MEDS: Famotidine 20 MG TABLET PO SCH (08:12)
[2019-02-06] MEDS: Aspirin 81 MG TAB.CHEW PO SCH (08:12)
[2019-02-06] MEDS: BuPROPion XL (24 HR) 150 MG TABLET PO SCH (08:12)
[2019-02-06] MEDS: Triamcinolone Acet 0.1% CRM 15 GM TUBE TP SCH (08:13)
[2019-02-06] MEDS: Insulin LISPRO 300 UNITS/3 ML VIAL SQ SCH ×4 (08:16→21:16)
[2019-02-06] MEDS ORDERED: Triamcinolone Acet 0.1% CRM 15 GM TUBE TP PRN (08:21)
[2019-02-06] MEDS ORDERED: Famotidine 20 MG TABLET PO SCH (09:00)
[2019-02-06] MEDS ORDERED: Aspirin 81 MG TAB.CHEW PO SCH (09:00)
[2019-02-06] MEDS ORDERED: BuPROPion XL (24 HR) 150 MG TABLET PO SCH (09:00)
[2019-02-06 12:40] LABS: BUN/Creatinine Ratio 23 (6-26); Blood Urea Nitrogen 12 mg/dL (6-20); Calcium 7.5 mg/dL (8.6-10.3); Carbon Dioxide 26 mEq/L (23-29); Chloride 115 mEq/L (98-107); Glucose 151 mg/dL (70-105); Osmolality,Calculated 313 (280-300); Potassium 3.2 mEq/L (3.5-5.1); Sodium 150 mEq/L (136-145); eGFR For African Americans > 60 (> 60); eGFR For Non-African Americans > 60 (> 60)
[2019-02-06] MEDS ORDERED: D5% in 0.45% NACL 1,000 ML IVC SCH ×2 (14:00→18:30)
[2019-02-06] MEDS: Bisacodyl 10 MG RECTAL SUPPOSITORY RC SCH (17:46)
[2019-02-06] MEDS ORDERED: D5% in 0.45% NACL 1,000 ML IVC ONE (18:30)
[2019-02-06] MEDS: Insulin DETEMIR 100 UNIT/ML X5UNITS SQ SCH (21:17)
[2019-02-07 04:55] LABS: Basophils % 0.2 %; Eosinophils # 0.2 K/mcL (0.0-0.6); Eosinophils % 1.6 %; Hematocrit 42.9 % (35.3-44.9); Hemoglobin 13.4 g/dL (11.5-15.4); Immature Granulocytes % 0.5 % (0-4); Lymphocytes # 1.2 K/mcL (0.6-4.6); Lymphocytes % 12.7 %; Mean Corpuscular HGB Conc 31.2 g/dL (31.6-35.5); Mean Platelet Volume 11.6 fL (9.4-12.4); Monocytes # 0.4 K/mcL (0.0-1.3); Monocytes % 4.3 %; Neutrophils # 7.4 K/mcL (1.6-8.9); Platelet Count 192 K/mcL (140-400); Red Blood Count 4.47 M/mcL (3.82-4.97); Red Cell Distribution Width 15.2 % (11.5-14.5); Segmented Neutrophils % 80.7 %; White Blood Count 9.2 K/mcL (4.3-11.1)
[2019-02-07 05:13] LABS: BUN/Creatinine Ratio 16 (6-26); Blood Urea Nitrogen 10 mg/dL (6-20); Calcium 8.1 mg/dL (8.6-10.3); Carbon Dioxide 25 mEq/L (23-29); Chloride 111 mEq/L (98-107); Glucose 172 mg/dL (70-105); Osmolality,Calculated 309 (280-300); Sodium 148 mEq/L (136-145); eGFR For African Americans > 60 (> 60); eGFR For Non-African Americans > 60 (> 60)
[2019-02-07] MEDS: Piperacillin/Tazobactam 3.375 GM in 0.9 % Sodium Chloride Mini Bag 100 ML IVPB SCH (05:56)
[2019-02-07] MEDS: levETIRAcetam 250 MG TABLET PO SCH ×2 (05:57→16:49)
[2019-02-07] MEDS: *HR* Heparin 5,000 UNIT/ML VIAL SQ SCH ×2 (06:01→16:49)
[2019-02-07] MEDS ORDERED: Saline Nasal Spray 44 ML BOTTLE NS PRN (06:38)
[2019-02-07] MEDS: Famotidine 20 MG TABLET PO SCH (08:09)
[2019-02-07] MEDS: Aspirin 81 MG TAB.CHEW PO SCH (08:09)
[2019-02-07] MEDS: Insulin LISPRO 300 UNITS/3 ML VIAL SQ SCH ×4 (08:11→20:22)
[2019-02-07] MEDS: Lactobacillus 1 EACH CAP.SPRINK PO SCH (08:11)
[2019-02-07] MEDS: BuPROPion XL (24 HR) 150 MG TABLET PO SCH (08:11)
[2019-02-07] MEDS ORDERED: Aminoglycoside Consult 1 EACH MC ONE (12:37)
[2019-02-07] MEDS: Bisacodyl 10 MG RECTAL SUPPOSITORY RC SCH (16:50)
[2019-02-07] MEDS: Insulin DETEMIR 100 UNIT/ML X5UNITS SQ SCH (23:04)
[2019-02-08 05:51] LABS: Basophils % 0.1 %; Eosinophils # 0.1 K/mcL (0.0-0.6); Eosinophils % 1.6 %; Hematocrit 44.9 % (35.3-44.9); Immature Granulocytes % 1.2 % (0-4); Lymphocytes # 1.2 K/mcL (0.6-4.6); Lymphocytes % 14.3 %; Mean Corpuscular HGB Conc 31.2 g/dL (31.6-35.5); Mean Corpuscular Hemoglobin 30.2 pg (28.0-33.3); Mean Corpuscular Volume 96.8 fL (83.0-100.0); Mean Platelet Volume 11.1 fL (9.4-12.4); Monocytes # 0.4 K/mcL (0.0-1.3); Monocytes % 4.4 %; Neutrophils # 6.4 K/mcL (1.6-8.9); Nucleated Red Blood Cells 0.2 /100 WBC (0); Platelet Count 196 K/mcL (140-400); Red Blood Count 4.64 M/mcL (3.82-4.97); Red Cell Distribution Width 15.4 % (11.5-14.5); Segmented Neutrophils % 78.4 %; White Blood Count 8.2 K/mcL (4.3-11.1)
[2019-02-08 06:12] LABS: BUN/Creatinine Ratio 16 (6-26); Blood Urea Nitrogen 8 mg/dL (6-20); Calcium 8.9 mg/dL (8.6-10.3); Carbon Dioxide 26 mEq/L (23-29); Chloride 108 mEq/L (98-107); Glucose 109 mg/dL (70-105); Osmolality,Calculated 301 (280-300); Potassium 3.2 mEq/L (3.5-5.1); Sodium 146 mEq/L (136-145); eGFR For African Americans > 60 (> 60); eGFR For Non-African Americans > 60 (> 60)
[2019-02-08] MEDS: levETIRAcetam 250 MG TABLET PO SCH ×2 (06:50→18:16)
[2019-02-08] MEDS: *HR* Heparin 5,000 UNIT/ML VIAL SQ SCH ×2 (06:50→18:21)
[2019-02-08] MEDS: Famotidine 20 MG TABLET PO SCH (09:24)
[2019-02-08] MEDS: Insulin LISPRO 300 UNITS/3 ML VIAL SQ SCH ×4 (09:24→21:49)
[2019-02-08] MEDS: Lactobacillus 1 EACH CAP.SPRINK PO SCH (09:26)
[2019-02-08] MEDS: Aspirin 81 MG TAB.CHEW PO SCH (09:26)
[2019-02-08] MEDS: BuPROPion XL (24 HR) 150 MG TABLET PO SCH (09:26)
[2019-02-08] MEDS: Bisacodyl 10 MG RECTAL SUPPOSITORY RC SCH (18:16)
[2019-02-08] MEDS ORDERED: Insulin DETEMIR 100 UNIT/ML X5UNITS SQ SCH (21:00)
[2019-02-09 05:34] LABS: BUN/Creatinine Ratio 18 (6-26); Blood Urea Nitrogen 8 mg/dL (6-20); Carbon Dioxide 23 mEq/L (23-29); Chloride 109 mEq/L (98-107); Glucose 136 mg/dL (70-105); Osmolality,Calculated 298 (280-300); Potassium 4.3 mEq/L (3.5-5.1); Sodium 144 mEq/L (136-145); eGFR For African Americans > 60 (> 60); eGFR For Non-African Americans > 60 (> 60)
[2019-02-09] MEDS: *HR* Heparin 5,000 UNIT/ML VIAL SQ SCH (06:02)
[2019-02-09] MEDS: levETIRAcetam 250 MG TABLET PO SCH (06:02)
[2019-02-09 07:34] VITALS: BP 106/64
[2019-02-09] MEDS: Aspirin 81 MG TAB.CHEW PO SCH (07:45)
[2019-02-09] MEDS: Insulin LISPRO 300 UNITS/3 ML VIAL SQ SCH ×2 (07:45→11:34)
[2019-02-09] MEDS: Lactobacillus 1 EACH CAP.SPRINK PO SCH (07:45)
[2019-02-09] MEDS: Famotidine 20 MG TABLET PO SCH (07:46)
[2019-02-09] MEDS: BuPROPion XL (24 HR) 150 MG TABLET PO SCH (07:46)
== END 2019-02-09 12:38 | DRG 659 ==
LOC: 2NENU 17:24 → EMEROOARM 17:24 → SUATTDRO 21:53 → 2NENU 23:41 → SUATTDRO 02-07 09:23
PROVIDERS: ADMIT Family Medicine; ATTEND Family Medicine

== ENCOUNTER 2019-02-17 15:30 | Inpatient (IN) ==
[2019-02-17] MEDS ORDERED: Ondansetron 4 MG/2 ML VIAL IVP ONE (15:43)
[2019-02-17 16:18] LABS: Bilirubin,Urine Negative (Negative); Blood,Urine Small (Negative); Clarity,Urine Cloudy (Clear); Color,Urine Yellow (Yellow); Glucose,Urine (UA) Normal (Normal); Ketones,Urine Negative (Negative); Leukocyte Esterase,Urine Large (Negative); Nitrite,Urine Negative (Negative); Protein,Urine Negative (Neg-Trace); Specific Gravity,Urine 1.011 (1.010-1.025); Urobilinogen,Urine Normal (Normal)
[2019-02-17 16:20] LABS: Bacteria,Urine None Seen per hpf (None-Few); Squamous Epithelial Cell,Urine Many per lpf (None-Few); WBC,Urine TNTC per hpf (0-3)
[2019-02-17] MEDS: 0.9 % Sodium Chloride 1,000 ML IVC ONE (16:21)
[2019-02-17 16:34] LABS: Yeast,Urine Few per hpf (None Seen)
[2019-02-17 16:47] LABS: Basophils # 0.1 K/mcL (0.0-0.2); Basophils % 0.6 %; Eosinophils # 0.3 K/mcL (0.0-0.6); Eosinophils % 3.8 %; Hematocrit 45.7 % (35.3-44.9); Hemoglobin 15.3 g/dL (11.5-15.4); Immature Granulocytes % 0.5 % (0-4); Lymphocytes # 2.1 K/mcL (0.6-4.6); Lymphocytes % 26.5 %; Mean Corpuscular HGB Conc 33.5 g/dL (31.6-35.5); Mean Corpuscular Hemoglobin 30.8 pg (28.0-33.3); Mean Platelet Volume 10.4 fL (9.4-12.4); Monocytes # 0.5 K/mcL (0.0-1.3); Monocytes % 6.4 %; Platelet Count 212 K/mcL (140-400); Red Blood Count 4.97 M/mcL (3.82-4.97); Red Cell Distribution Width 15.7 % (11.5-14.5); Segmented Neutrophils % 62.2 %
[2019-02-17] MEDS ORDERED: Piperacillin/Tazobactam 3.375 GM in 0.9 % Sodium Chloride Mini Bag 100 ML IVPB ONE (16:53)
[2019-02-17] MEDS ORDERED: Aspirin 325 MG TABLET PO ONE (18:12)
[2019-02-17] MEDS ORDERED: *HR* Heparin 5,000 UNIT/ML VIAL IVP ONE (18:14)
[2019-02-17] MEDS ORDERED: *HR* Heparin 5,000 UNIT/ML VIAL IVP PRN ×2 (18:14)
[2019-02-17 18:15] LABS: Alanine Aminotransferase 75 Units/L (7-52); Albumin 3.4 g/dL (3.5-5.7); Alkaline Phosphatase 113 Units/L (34-104); Aspartate Amino Transferase 49 Units/L (13-39); BUN/Creatinine Ratio 17 (6-26); Bilirubin,Total 0.3 mg/dL (0.3-1.0); Blood Urea Nitrogen 8 mg/dL (6-20); Calcium 8.4 mg/dL (8.6-10.3); Carbon Dioxide 25 mEq/L (23-29); Chloride 99 mEq/L (98-107); Globulin 3.3 g/dL (2.4-3.5); Glucose 253 mg/dL (70-105); Osmolality,Calculated 289 (280-300); Potassium 3.6 mEq/L (3.5-5.1); Sodium 136 mEq/L (136-145); Thyroid Stimulating Hormone 0.802 mcIU/mL (0.340-5.600); Total Protein 6.7 g/dL (6.4-8.9); eGFR For African Americans > 60 (> 60); eGFR For Non-African Americans > 60 (> 60)
[2019-02-17] MEDS ORDERED: 0.9 % Sodium Chloride 1,000 ML IVC ONE (18:20)
[2019-02-17] MEDS ORDERED: Heparin 25,000 UNIT/250 ML D5W 25,000 UNIT/250 ML IV.SOLN IVC ONE (18:23)
[2019-02-17] MEDS: Heparin 25,000 UNIT/250 ML D5W 25,000 UNIT/250 ML IV.SOLN IVC SCH (18:33)
[2019-02-17] MEDS ORDERED: Naloxone 0.4 MG/ML INJ IVP PRN (22:14)
[2019-02-17 23:51] LABS: Magnesium 1.8 mg/dL (1.6-2.6)
[2019-02-18] MEDS: Piperacillin/Tazobactam 3.375 GM in 0.9 % Sodium Chloride Mini Bag 100 ML IVP SCH ×2 (00:03→09:33)
[2019-02-18 04:44] LABS: Basophils % 0.2 %; Eosinophils # 0.3 K/mcL (0.0-0.6); Eosinophils % 2.4 %; Hematocrit 44.3 % (35.3-44.9); Hemoglobin 14.6 g/dL (11.5-15.4); Immature Granulocytes % 0.2 % (0-4); Lymphocytes % 8.2 %; Mean Corpuscular Hemoglobin 29.7 pg (28.0-33.3); Mean Corpuscular Volume 90.2 fL (83.0-100.0); Mean Platelet Volume 10.4 fL (9.4-12.4); Monocytes # 0.2 K/mcL (0.0-1.3); Monocytes % 1.5 %; Neutrophils # 10.5 K/mcL (1.6-8.9); Platelet Count 206 K/mcL (140-400); Prothrombin Time 11.9 Seconds (9.4-12.1); Red Blood Count 4.91 M/mcL (3.82-4.97); Red Cell Distribution Width 15.7 % (11.5-14.5); Segmented Neutrophils % 87.5 %
[2019-02-18 05:04] LABS: Alanine Aminotransferase 65 Units/L (7-52); Albumin 3.3 g/dL (3.5-5.7); Alkaline Phosphatase 113 Units/L (34-104); Aspartate Amino Transferase 38 Units/L (13-39); BUN/Creatinine Ratio 14 (6-26); Bilirubin,Total 0.5 mg/dL (0.3-1.0); Blood Urea Nitrogen 6 mg/dL (6-20); Calcium 8.3 mg/dL (8.6-10.3); Carbon Dioxide 22 mEq/L (23-29); Chloride 104 mEq/L (98-107); Chol/HDL Ratio 9.2 (0-4.9); Cholesterol 166 mg/dL (< 200); Globulin 3.4 g/dL (2.4-3.5); Glucose 283 mg/dL (70-105); HDL Cholesterol 18 mg/dL (40-59); Osmolality,Calculated 300 (280-300); Potassium 4.4 mEq/L (3.5-5.1); Sodium 141 mEq/L (136-145); Total Protein 6.7 g/dL (6.4-8.9); Triglycerides 701 mg/dL (< 150); eGFR For African Americans > 60 (> 60); eGFR For Non-African Americans > 60 (> 60)
[2019-02-18] MEDS ORDERED: *HR* Dextrose 50 % in Water (Syg) 50 ML SYRINGE IVP PRN (05:49)
[2019-02-18] MEDS ORDERED: Dextrose Gel 15 GM/37.5 ML TUBE PO PRN ×2 (05:49)
[2019-02-18] MEDS ORDERED: Lactulose Oral Soln 20 GM/30 ML UDC PO PRN (05:49)
[2019-02-18] MEDS ORDERED: D5% in Water 1,000 ML IVC PRN (05:49)
[2019-02-18] MEDS ORDERED: 0.9 % Sodium Chloride 1,000 ML IVC ONE (07:04)
[2019-02-18] MEDS ORDERED: Ibuprofen 600 MG TABLET PO ONE (07:05)
[2019-02-18] MEDS: 0.9 % Sodium Chloride 1,000 ML IVC ONE (07:39)
[2019-02-18] MEDS: Insulin LISPRO 300 UNITS/3 ML VIAL SQ SCH ×4 (09:35→21:41)
[2019-02-18] MEDS: levETIRAcetam 250 MG TABLET PO SCH ×2 (09:35→21:42)
[2019-02-18] MEDS: Insulin DETEMIR 100 UNIT/ML X5UNITS SQ SCH ×3 (09:39→21:42)
[2019-02-18] MEDS ORDERED: Ringers Solution, Lactated 500 ML IVC ONE (13:38)
[2019-02-18] MEDS: Heparin 25,000 UNIT/250 ML D5W 25,000 UNIT/250 ML IV.SOLN IVC SCH (15:20)
[2019-02-18] MEDS: levoFLOXacin 750 MG/150 ML 750 MG/150 ML BAG IVPB SCH (16:28)
[2019-02-19] MEDS: levoFLOXacin 750 MG/150 ML 750 MG/150 ML BAG IVPB SCH (08:21)
[2019-02-19] MEDS: Insulin LISPRO 300 UNITS/3 ML VIAL SQ SCH ×4 (08:22→20:49)
[2019-02-19] MEDS: Insulin DETEMIR 100 UNIT/ML X5UNITS SQ SCH ×3 (08:22→20:48)
[2019-02-19] MEDS: levETIRAcetam 250 MG TABLET PO SCH ×2 (08:22→20:48)
[2019-02-19] MEDS ORDERED: Furosemide 40 MG/4 ML VIAL IVP ONE (10:34)
[2019-02-19] MEDS: *HR* Rivaroxaban 15 MG TABLET PO SCH ×2 (11:26→20:48)
[2019-02-20 02:37] LABS: Hematocrit 39.6 % (35.3-44.9); Hemoglobin 12.5 g/dL (11.5-15.4); Mean Corpuscular HGB Conc 31.6 g/dL (31.6-35.5); Mean Corpuscular Hemoglobin 30.3 pg (28.0-33.3); Mean Corpuscular Volume 95.9 fL (83.0-100.0); Mean Platelet Volume 10.3 fL (9.4-12.4); Platelet Count 199 K/mcL (140-400); Red Blood Count 4.13 M/mcL (3.82-4.97); Red Cell Distribution Width 15.9 % (11.5-14.5); White Blood Count 9.5 K/mcL (4.3-11.1)
[2019-02-20 02:59] LABS: BUN/Creatinine Ratio 9 (6-26); Blood Urea Nitrogen 4 mg/dL (6-20); Calcium 8.7 mg/dL (8.6-10.3); Carbon Dioxide 26 mEq/L (23-29); Chloride 105 mEq/L (98-107); Glucose 73 mg/dL (70-105); Osmolality,Calculated 289 (280-300); Potassium 3.3 mEq/L (3.5-5.1); Sodium 142 mEq/L (136-145); eGFR For African Americans > 60 (> 60); eGFR For Non-African Americans > 60 (> 60)
[2019-02-20] MEDS ORDERED: Furosemide 40 MG/4 ML VIAL IVP ONE (07:29)
[2019-02-20] MEDS: Insulin LISPRO 300 UNITS/3 ML VIAL SQ SCH ×4 (07:44→20:37)
[2019-02-20] MEDS: *HR* Rivaroxaban 15 MG TABLET PO SCH ×2 (07:48→20:34)
[2019-02-20] MEDS: levETIRAcetam 250 MG TABLET PO SCH ×2 (07:49→20:34)
[2019-02-20] MEDS: levoFLOXacin 750 MG/150 ML 750 MG/150 ML BAG IVPB SCH (07:49)
[2019-02-20] MEDS: Insulin DETEMIR 100 UNIT/ML X5UNITS SQ SCH ×3 (07:50→23:48)
[2019-02-21 03:43] LABS: BUN/Creatinine Ratio 12 (6-26); Blood Urea Nitrogen 6 mg/dL (6-20); Calcium 8.8 mg/dL (8.6-10.3); Carbon Dioxide 30 mEq/L (23-29); Chloride 100 mEq/L (98-107); Glucose 203 mg/dL (70-105); Osmolality,Calculated 291 (280-300); Potassium 3.5 mEq/L (3.5-5.1); Sodium 139 mEq/L (136-145); eGFR For African Americans > 60 (> 60); eGFR For Non-African Americans > 60 (> 60)
[2019-02-21 06:33] VITALS: BP 81/58
[2019-02-21] MEDS ORDERED: levoFLOXacin 750 MG TABLET PO ONE (09:32)
[2019-02-21] MEDS ORDERED: Furosemide 40 MG/4 ML VIAL IVP ONE (09:48)
[2019-02-21] MEDS: Insulin LISPRO 300 UNITS/3 ML VIAL SQ SCH ×2 (10:25→11:22)
[2019-02-21] MEDS: *HR* Rivaroxaban 15 MG TABLET PO SCH (10:25)
[2019-02-21] MEDS: levETIRAcetam 250 MG TABLET PO SCH (10:25)
[2019-02-21] MEDS ORDERED: Insulin DETEMIR 100 UNIT/ML X5UNITS SQ SCH (21:00)
== END 2019-02-21 14:33 | DRG 280 ==
LOC: 2NENU 15:30 → EMEROOARM 15:30 → SUATTDRO 18:57 → 2NENU 20:11
PROVIDERS: ADMIT Internal Medicine; ATTEND Internal Medicine